=== PATIENT | female | born 1965 ===

== ENCOUNTER 2018-02-03 03:41 | Emergency (ER) | payer OTHER ==
--- NOTE | 2018-02-03 03:57 | C.PDOC ---
History Of Present Illness 52 year old female presents to the ED c/o left sided chest pain associated with numbness to her left arm that started yesterday. Patient denies injury, fall, trauma, headache, visual changes, nausea, vomit, dizziness, SOB, palpitations, weakness, numbness. Time Seen by Provider: 02/03/18 03:47 Chief Complaint (Nursing): Chest Pain History Per: Patient History/Exam Limitations: no limitations Onset/Duration Of Symptoms: Days (1) Current Symptoms Are (Timing): Still Present Quality: "Pain" Recent travel outside of the [place]: No Additional History Per: Patient Past Medical History Reviewed: Historical Data, Nursing Documentation, Vital Signs Vital Signs: Last Vital Signs Temp 98 F 02/03/18 03:42 Pulse 77 02/03/18 03:42 Resp 14 02/03/18 03:42 BP 161/101 H 02/03/18 03:49 Pulse Ox 100 02/03/18 03:42 - Medical History PMH: HTN Surgical History: No Surg Hx Family History: States: Unknown Family Hx - Social History Hx Alcohol Use: No Hx Substance Use: No - Immunization History Hx Tetanus Toxoid Vaccination: Yes Hx Influenza Vaccination: No Hx Pneumococcal Vaccination: No Review Of Systems Constitutional: Negative for: Fever, Chills Eyes: Negative for: Vision Change Cardiovascular: Positive for: Chest Pain. Negative for: Palpitations Respiratory: Negative for: Cough, Shortness of Breath Gastrointestinal: Negative for: Nausea, Vomiting, Abdominal Pain Skin: Negative for: Rash Neurological: Negative for: Weakness, Numbness, Headache, Dizziness Physical Exam - Physical Exam Appears: Non-toxic, No Acute Distress Skin: Normal Color, Warm, Dry Head: Atraumatic, Normacephalic Eye(s): bilateral: Normal Inspection Neck: Normal ROM, Supple Chest: Symmetrical Cardiovascular: Rhythm Regular Respiratory: Normal Breath Sounds, No Rales, No Rhonchi, No Wheezing Gastrointestinal/Abdominal: Soft, No Tenderness, No Guarding, No Rebound Extremity: Bilateral: Atraumatic, Normal Color And Temperature, Normal ROM Neurological/Psych: Oriented x3, Normal Speech, Normal Cognition Gait: Steady ED Course And Treatment - Laboratory Results Result Diagrams: 02/03/18 04:12 02/03/18 04:12 ECG: Interpreted By Me, Viewed By Me ECG Rhythm: Sinus Rhythm ECG Interpretation: No Acute Changes Interpretation Of ECG: normal axis, normal intervals, no acute ST changes Rate From EC O2 Sat by Pulse Oximetry: 100 (ON RA) Pulse Ox Interpretation: Normal - Radiology CXR: Interpreted by Me, Viewed By Me CXR Interpretation: Yes: No Acute Disease Progress Note: Plan: - EKG. - CXR. - UA. - Labs. Patient found to be hypertensive. ASA and Nitro paste were ordered. Case was d/w who accepted patient to his service to [facility] for observation. Disposition - Disposition Disposition: HOSPITALIZED Disposition Time: 05:42 Condition: FAIR - Clinical Impression Clinical Impression: Chest pain - PA / JOB COACH/JOB DEVELOPER / Resident Statement MD/DO has reviewed & agrees with the documentation as recorded. - Scribe Statement The provider has reviewed the documentation as recorded by the Scribe Saurabh Soto All medical record entries made by the Scribe were at my direction and personally dictated by me. I have reviewed the chart and agree that the record accurately reflects my personal performance of the history, physical exam, medical decision making, and the department course for this patient. I have also personally directed, reviewed, and agree with the discharge instructions and disposition. Decision To Admit - Pt Status Changed To: Hospital Disposition Of: Observation - . Bed Request Type: Telemetry Admitting Physician: Kris Long Patient Diagnosis: Chest pain
[2018-02-03 04:22] LABS: BASO # 0.1 K/uL (0.0-0.2); BASO % 1.1 % (0.0-2.0); EOS # 0.5 K/uL (0.0-0.7); EOS % 5.5 % (0.0-4.0); HEMOGLOBIN 13.7 g/dL (11.0-16.0); LYMPH # 2.9 K/uL (1.0-4.3); LYMPH % 31.7 % (20.0-40.0); MEAN CELL VOLUME 87.9 fL (81.0-99.0); MEAN CORPUSCULAR HEMOGLOBIN 30.2 pg (27.0-31.0); MEAN CORPUSCULAR HGB CONC 34.4 g/dL (33.0-37.0); MONO # 0.7 K/uL (0.0-0.8); MONO % 7.4 % (0.0-10.0); NEUT % 54.3 % (50.0-75.0); NRBC % 0.1 % (0.0-2.0); RBC 4.55 Mil/uL (3.80-5.20); RED CELL DISTRIBUTION WIDTH 14.5 % (11.5-14.5); WHITE BLOOD COUNT 9.3 K/uL (4.8-10.8)
[2018-02-03 04:26] LABS: PARTIAL THROMBOPLASTIN TIME 34 SECONDS (21-34); PROTHROMBIN TIME 11.2 SECONDS (9.7-12.2)
[2018-02-03 04:30] LABS: SQUAMOUS EPITHIAL 6 /hpf (0-5); URINE BILIRUBIN NEGATIVE (NEGATIVE); URINE CLARITY Clear (Clear); URINE COLOR Straw (YELLOW); URINE GLUCOSE (UA) NORMAL (Normal); URINE LEUKOCYTE ESTERASE NEG Leu/uL (Negative); URINE PROTEIN NEGATIVE (NEGATIVE); URINE UROBILINOGEN NORMAL mg/dL (0.2-1.0)
[2018-02-03 04:31] LABS: URINE BLOOD NEGATIVE (NEGATIVE)
[2018-02-03 04:50] LABS: ALB/GLOB RATIO 1.2 (1.0-2.1); ALT/SGPT 36 U/L (9-52); AST/SGOT 24 U/L (14-36); BLOOD UREA NITROGEN 9 mg/dL (7-17); CALCIUM 8.6 mg/dl (8.6-10.4); CK-MB 0.58 ng/mL (0.0-3.38); GFR NON-AFRICAN AMERICAN > 60
[2018-02-03 05:10] LABS: D DIMER < 200 ng/mlDDU (0-243)
[2018-02-03] MEDS ORDERED: Nitroglycerin 2% Ointment Foilpak UD TOP STA (05:19)
[2018-02-03] MEDS ORDERED: Nitroglycerin 2% Ointment Foilpak UD TOP ONE (05:24)
[2018-02-03 07:42] VITALS: RESP 18
[2018-02-03] MEDS ORDERED: Pantoprazole 40 mg EC Tab PO SCH (10:00)
[2018-02-03 10:17] VITALS: TEMP 97.7
[2018-02-03] MEDS: Enoxaparin 40 mg Syringe SC SCH ×2 (11:19→11:20)
[2018-02-03 12:36] LABS: CK-MB 0.63 ng/mL (0.0-3.38)
[2018-02-03 13:39] VITALS: BP 143/93; PULSE 85; O2SAT 99
--- NOTE | 2018-02-03 14:20 | CP.PCM.HP ---
Past Patient History - Past Social History Smoking Status: Heavy Smoker > 10 Cigarettes Daily - CARDIAC Hx Hypertension: Yes - PSYCHIATRIC Hx Substance Use: No Meds Allergies/Adverse Reactions: Allergies Allergy/AdvReac Type Severity Reaction Status Date / Time No Known Allergies Allergy Unverified 02/03/18 03:46 Physical Exam - Constitutional Appears: Well - Head Exam Head Exam: ATRAUMATIC, NORMAL INSPECTION, NORMOCEPHALIC - Eye Exam Eye Exam: EOMI, Normal appearance, PERRL Pupil Exam: NORMAL ACCOMODATION, PERRL - ENT Exam ENT Exam: Mucous Membranes Moist, Normal Exam - Neck Exam Neck exam: Positive for: Normal Inspection - Respiratory Exam Respiratory Exam: Decreased Breath Sounds - Cardiovascular Exam Cardiovascular Exam: REGULAR RHYTHM, +S1, +S2 - GI/Abdominal Exam GI & Abdominal Exam: Diminished Bowel Sounds, Soft - Rectal Exam Rectal Exam: Deferred Results - Vital Signs Recent Vital Signs: Last Vital Signs Temp 97.7 F 02/03/18 13:37 Pulse 85 02/03/18 13:37 Resp 18 02/03/18 13:37 BP 143/93 H 02/03/18 13:37 Pulse Ox 99 02/03/18 13:37 - Labs Result Diagrams: 02/03/18 04:12 02/03/18 04:12 Labs: Laboratory Results - last 24 hr 02/03/18 02/03/18 02/03/18 04:12 04:12 04:12 WBC 9.3 RBC 4.55 Hgb 13.7 Hct 40.0 MCV 87.9 MCH 30.2 MCHC 34.4 RDW 14.5 Plt Count 268 MPV 10.0 Neut % (Auto) 54.3 Lymph % (Auto) 31.7 Dubois % (Auto) 7.4 Eos % (Auto) 5.5 H Baso % (Auto) 1.1 Neut # (Auto) 5.0 Lymph # (Auto) 2.9 Dubois # (Auto) 0.7 Eos # (Auto) 0.5 Baso # (Auto) 0.1 PT 11.2 INR 1.0 APTT 34 D-Dimer, Quantitative < 200 Sodium 138 Potassium 3.5 L Chloride 105 Carbon Dioxide 23 Anion Gap 14 BUN 9 Creatinine 0.5 L Est GFR ( Amer) > 60 Est GFR (Non-Af Amer) > 60 Random Glucose 132 H Calcium 8.6 Total Bilirubin 0.3 AST 24 ALT 36 Alkaline Phosphatase 144 H Total Creatine Kinase 65 CK-MB (Mass) 0.58 Troponin I < 0.0120 Total Protein 7.3 Albumin 4.0 Globulin 3.3 Albumin/Globulin Ratio 1.2 Urine Color Urine Clarity Urine pH Ur Specific Eola Urine Protein Urine Glucose (UA) Urine Ketones Urine Blood Urine Nitrate Urine Bilirubin Urine Urobilinogen Ur Leukocyte Esterase Urine WBC (Auto) Urine RBC (Auto) Ur Squamous Epith Cells Urine HCG, Qual 02/03/18 02/03/18 02/03/18 04:16 04:16 11:58 WBC RBC Hgb Hct MCV MCH MCHC RDW Plt Count MPV Neut % (Auto) Lymph % (Auto) Dubois % (Auto) Eos % (Auto) Baso % (Auto) Neut # (Auto) Lymph # (Auto) Dubois # (Auto) Eos # (Auto) Baso # (Auto) PT INR APTT D-Dimer, Quantitative Sodium Potassium Chloride Carbon Dioxide Anion Gap BUN Creatinine Est GFR ( Amer) Est GFR (Non-Af Amer) Random Glucose Calcium Total Bilirubin AST ALT Alkaline Phosphatase Total Creatine Kinase 46 CK-MB (Mass) 0.63 Troponin I < 0.0120 Total Protein Albumin Globulin Albumin/Globulin Ratio Urine Color Straw Urine Clarity Clear Urine pH 7.0 Ur Specific Eola 1.004 Urine Protein Negative Urine Glucose (UA) Normal Urine Ketones Negative Urine Blood Negative Urine Nitrate Negative Urine Bilirubin Negative Urine Urobilinogen Normal Ur Leukocyte Esterase Neg Urine WBC (Auto) 1 Urine RBC (Auto) 1 Ur Squamous Epith Cells 6 H Urine HCG, Qual Negative
--- NOTE | 2018-02-03 14:32 | RAD ---
Date of service: 02/03/2018 HISTORY: chest pain COMPARISON: Comparison chest 04/23/2012 FINDINGS: LUNGS: Poor inspiration with low lung volumes, crowded bronchovascular markings and mild bibasilar atelectasis PLEURA: No significant pleural effusion identified, no pneumothorax apparent. CARDIOVASCULAR: No aortic atherosclerotic calcification present. Normal cardiac size. No pulmonary vascular congestion. OSSEOUS STRUCTURES: No significant abnormalities. VISUALIZED UPPER ABDOMEN: Normal. OTHER FINDINGS: None. IMPRESSION: Poor inspiration with low lung volumes, crowded bronchovascular markings and mild bibasilar atelectasis
--- NOTE | 2018-02-03 23:30 | CON ---
DATE: 02/03/2018 HISTORY OF PRESENT ILLNESS: The patient is 52 years old female, who has no known prior cardiac history, nonsmoker, presents because of left-sided chest pain with left hand numbness. The patient stated that she had similar episodes in the past and presented to the different emergency rooms. The patient is on antihypertensive agents by her primary physician, but never had any cardiac workup such as stress test or cardiac catheterization in the past. At the time of me evaluating the patient, she had made up her mind to sign against medical advise regardless of the outcome of my evaluation. SOCIAL HISTORY: Nonsmoker, nondrinker. 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 MEDICATIONS: Given are aspirin 325 mg, Lovenox 40 mg subcutaneously and nitro paste 1 inch. REVIEW OF SYSTEMS: No nausea or vomiting. No dizziness or syncope. PHYSICAL EXAMINATION: GENERAL: The patient is a middle aged female, who does not appear to be in acute distress. VITAL SIGNS: Most recent blood pressure 143/93, heart rate 85, temperature 97.7 and respirations 18. HEENT: Normocephalic. CHEST: Clear. HEART: S1 and S2 regular. ABDOMEN: Soft. EXTREMITIES: No edema. No calf tenderness. LABORATORY DATA: Two sets of troponin's are negative. SMA-7 is within normal limits, except for glucose 132 and creatinine 0.5, potassium of 3.5. Hemoglobin, hematocrit, white count, and platelet count are within normal limits. PT, PTT, INR and D-dimer are within normal limits. EKG reveal normal sinus rhythm. ASSESSMENT: 1. Chest pain, myocardial infarction ruled out. 2. Uncontrolled hypertension. RECOMMENDATIONS: The patient was advised to stay and has to undergone cardiac workup, but she refused and she decided to leave against medical advise without any explanation. Vladimir Ruano MD
--- NOTE | 2018-02-07 17:24 | CARD ---
APPROVED REPORT Date of service: 02/03/2018 EKG Measurement Heart [id number] <Conclusion> Normal sinus rhythm Normal ECG
== END 2018-02-03 14:40 | disposition left against medical advice (07) ==
LOC: C.ER 03:41 → UNDOADMOB 05:43 → C.9E 05:43 → C.ER 14:40
DX: R07.9 Chest pain, unspecified (principal)
CPT/HCPCS: 71045; 80053; 81001; 82550; 82553; 84484; 84703; 85025; 85378; 85610; 85730; 96372; 99285; J1650